=== PATIENT | male | born 1970 | race Caucasian/White ===

== ENCOUNTER 2019-10-24 11:42 | Emergency (ER) | payer MEDICAID ==
[~2019-10-24] VITALS: Ht 167.6 cm; Wt 68.0 kg
--- NOTE | 2019-10-24 12:09 | NUR ---
[email or web address], medical screening exam in progress
--- NOTE | 2019-10-24 12:26 | NUR ---
Crutches dispensed. Pt instructed on proper use of crutches. Patient able to demonstrate correct use of crutches. Patient discharged to home in stable condition. Written and verbal after care instructions given. Patient verbalizes understanding & compliance of instructions. Stressed follow up with ortho doctor or return to ER for worsening s/s.
== END 2019-10-24 12:29 | disposition home or self-care (01) ==
LOC: ER 11:42
DX: S79.912A Unspecified injury of left hip, initial encounter (principal); X50.1XXA Overexertion from prolonged static or awkward postures, initial encounter; Y93.53 Activity, golf; Y92.838 Other recreation area as the place of occurrence of the external cause; Y99.8 Other external cause status; Z95.0 Presence of cardiac pacemaker; Z79.01 Long term (current) use of anticoagulants
CPT/HCPCS: 73502; A4663